=== PATIENT | female | born 2000 | race Caucasian/White ===

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

== ENCOUNTER 2021-09-02 12:29 | Emergency (ER) | payer OTHER ==
[2021-09-02 14:16] LABS: BASOPHIL 0.4 % (0-2); EOSINOPHIL 0.7 % (0-5); HCT 38.3 % (37.0-47.0); HGB 13.1 g/dl (12.5-16.0); LYMPHOCYTE 23.8 % (15-48); MCH 31.6 pg (25.0-31.0); MCHC 34.2 g/dL (32.0-36.0); MCV 92.5 fL (78.0-100.0); MONOCYTE 7.2 % (0-12); MPV 8.9 fL (6.0-9.5); NEUTROPHIL 67.6 % (41-80); NRBC 0; PLT 225 K/uL (150-400); RBC 4.14 M/uL (4.20-5.40); RDW 13.3 % (11.5-14.0); WBC 9.6 K/uL (4.0-10.5)
[2021-09-02 14:32] LABS: BUN/CREAT RATIO (CALC) 16.4 RATIO; CREATININE 0.55 mg/dL (0.51-0.95); POTASSIUM 3.9 mmol/L (3.5-5.1)
[2021-09-02 16:13] LABS: BILIRUBIN NEGATIVE (NEGATIVE); BLOOD NEGATIVE Ery/uL (NEGATIVE); CLARITY HAZY (CLEAR); COLOR YELLOW (YELLOW); GLUCOSE (U) NORMAL (NORMAL); LEUKOCYTES NEGATIVE Leu/uL (NEGATIVE); NITRITE NEGATIVE (NEGATIVE); PROTEIN NEGATIVE (NEGATIVE); SPECIFIC GRAVITY 1.025 (1.001-1.030); UROBILINOGEN 0.2 mg/dL (0.2-1.0); pH 6.5 (5.0-9.0)
== END 2021-09-02 16:43 | disposition home or self-care (01) ==
LOC: FER 12:29
PROVIDERS: Nurse Practitioner Family
DX: O20.0 Threatened abortion (principal); O99.331 Smoking (tobacco) complicating pregnancy, first trimester; F17.210 Nicotine dependence, cigarettes, uncomplicated; Z3A.11 11 weeks gestation of pregnancy
CPT/HCPCS: 36415; 76830; 80048; 81003; 84702; 85025; 86900; 86901

== ENCOUNTER 2022-01-06 17:05 | Emergency (ER) | payer OTHER ==
[2022-01-06 18:34] LABS: BASOPHIL 0.4 % (0-2); EOSINOPHIL 0.8 % (0-5); HCT 36.7 % (37.0-47.0); HGB 12.5 g/dl (12.5-16.0); LYMPHOCYTE 11.6 % (15-48); MCH 32.5 pg (25.0-31.0); MCHC 34.1 g/dL (32.0-36.0); MCV 95.3 fL (78.0-100.0); MONOCYTE 7.1 % (0-12); MPV 9.9 fL (6.0-9.5); NEUTROPHIL 79.3 % (41-80); NRBC 0; PLT 218 K/uL (150-400); RBC 3.85 M/uL (4.20-5.40); RDW 12.8 % (11.5-14.0); WBC 14.2 K/uL (4.0-10.5)
[2022-01-06 18:44] LABS: INR 0.99 (0.9-1.2); PROTHROMBIN TIME 12.5 SECONDS (11.8-13.4); PTT 28.6 SECONDS (24.4-34.7)
[2022-01-06 19:49] LABS: AMPHETAMINES NEGATIVE (NEGATIVE); BARBITURATES NEGATIVE (NEGATIVE); ECSTASY (MDMA) NEGATIVE (NEGATIVE); MARIJUANA (THC) POSITIVE (NEGATIVE); METHADONE NEGATIVE (NEGATIVE); OPIATES NEGATIVE (NEGATIVE); OXYCODONE NEGATIVE (NEGATIVE)
== END 2022-01-06 19:24 | disposition left against medical advice (07) ==
LOC: FER 17:05
PROVIDERS: Nurse Practitioner Family; Obstetrics & Gynecology
DX: Z04.1 Encounter for examination and observation following transport accident (principal); Z53.29 Procedure and treatment not carried out because of patient's decision for other reasons
CPT/HCPCS: 36415; 80305; 85025; 85384; 85610; 85730; 86900; 86901; 99283